=== PATIENT | female | born 1970 | race Two or more races ===

== ENCOUNTER 2022-11-16 07:36 | Emergency (ER) | payer MEDICAID ==
[~2022-11-16] VITALS: Ht 152.4 cm; Wt 99.5 kg
[2022-11-16] MEDS ORDERED: cefTRIAXone SOD 1,000 MG VL IM ONE (08:45)
[2022-11-16] MEDS ORDERED: CEPH500T PO (08:48)
[2022-11-16] MEDS ORDERED: PHEN-922 PO (08:48)
[2022-11-16 08:52] LABS: Urine Bacteria MOD /hpf (None Seen); Urine Blood 3+ /uL (Negative); Urine Hyaline Cast FEW /lpf (0 - 2); Urine Mucus FEW (None Seen); Urine Specific Gravity 1.005 (1.001-1.035); Urine WBC 196 /hpf (0 - 5); Urine WBC Clumps PRESENT /hpf (None Seen)
[2022-11-16 09:08] VITALS: BP 127/85
== END 2022-11-16 09:12 | disposition home or self-care (01) ==
LOC: ER 07:36
DX: N39.0 Urinary tract infection, site not specified (principal); I10 Essential (primary) hypertension
CPT/HCPCS: 81001; 96372; 99283; J0696